=== PATIENT | female | born 1970 | race Caucasian/White ===

== ENCOUNTER 2025-09-28 05:29 | Emergency (ER) | payer MEDICARE, MEDICAID, SELFPAY ==
[2025-09-28] VITALS (16 sets, daily range): BP systolic 89–126; BP diastolic 53–110; PULSE 54–85; RESP 15–27; TEMP 36.6; O2SAT 95–100
--- NOTE | ~2025-09-28 | CT_ITS ---
CT HEAD NON-CONTRAST CT C-SPINE Clinical History: Found down, Non verbal Comparison: None Technique: Unenhanced axial images skull base to vertex. Coronal, sagittal reformats. Axial images thoracic inlet to skull base. Sagittal and coronal reformats. CT images acquired with automatic exposure control for dose reduction DLP: 605 mGy-cm Findings: Head: Sulci, ventricles: Unremarkable. No intracerebral hemorrhage. No evidence acute territorial infarct. No mass effect, midline shift, intra-/extra-axial fluid collection. Bony calvarium intact. Visualized paranasal sinuses: Clear. Mastoid air cells: Clear. C-spine: No acute fracture. Grade 1 anterolisthesis C6 on 7. Vertebral bodies normal height and alignment. Mild degenerative changes. Disc spaces maintained. Prevertebral soft tissues within normal limits. Visualized lung apices: Clear. Visualized thyroid: Unremarkable. No enlarged cervical nodes. IMPRESSION: HEAD: 1. No acute intracranial findings. C-SPINE: 1. No acute fracture. Reviewed, dictated and finalized at location R. GER ELECTRICAL IMPRESSION: HEAD: 1. No acute intracranial findings. C-SPINE: 1. No acute fracture.
--- NOTE | ~2025-09-28 | XR_ITS ---
Examination: XR chest 1V portable Clinical History: Found down, Non verbal Comparison: None Technique: Portable AP Findings: Heart size normal. Lungs clear. No acute bony abnormality. IMPRESSION: 1. No acute cardiopulmonary findings given portable technique. Reviewed, dictated and finalized at location R. IGERATION SYSTEM INSTALLER
--- NOTE | ~2025-09-28 | XR_ITS ---
Examination: XR pelvis 1-2V Clinical History: Found down, Non verbal Comparison: None Technique: AP pelvis Findings/impression: 1. No fracture identified. Reviewed, dictated and finalized at location R. VERY ROOM NURSE
--- NOTE | 2025-09-28 05:40 | ECG_ITS ---
Test Date: 2025-09-28 07:58:06 Measurements Intervals [place] Rate: 69 P: 54 FL: 119 QRS: -12 QRSD: 85 T: 31 QT: 390 QTc: 420 Interpretive Statements SINUS RHYTHM WITH SINUS ARRHYTHMIA WITH SHORT FL INTERVAL LOW QRS VOLTAGE [QRS DEFLECTION < 0.5/1.0 mV IN LIMB/CHEST LEADS] ABNORMAL ECG No previous ECG available for comparison Electronically Signed On 09-28-2025 08:15:33 TAPPER BIT by Mohit Hurst M.D.
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
[2025-09-28 06:39] LABS: Hematocrit 38.6 % (37.0-47.0); Hemoglobin 12.0 g/dL (12.0-15.0); Immature Granulocyte Percent A 0.8 % (0-0.5); Lymphocytes Absolute Auto 0.72 K/mm3 (0.9-3.2); Mean Corpuscular HGB Conc 31.1 g/dl (32-36); Mean Corpuscular Hemoglobin 30.0 pg (26-34); Mean Corpuscular Volume 96.5 fl (80-100); Nucleated Red Blood Cells Absolute Auto 0.000 K/mm3 (0.0-0.012); Nucleated Red Blood Cells Perc 0.0 % (0.0-0.2); Platelet Count Result 265 k/mm3 (150-375); Red Blood Count 4.00 M/mm3 (4.2-5.4); White Blood Count 5.1 K/mm3 (4.5-10.0)
[2025-09-28 06:56] LABS: Alanine Aminotransferase 22 U/L (6-35); Albumin Level 3.8 g/dL (3.5-5.1); Alkaline Phosphatase 139 U/L (38-126); Anion Gap 4 mmol/L (4-12); Aspartate Amino Transferase 43 U/L (14-36); Bilirubin,Total 0.4 mg/dL (0.2-1.3); Blood Urea Nitrogen 17 mg/dL (7-17); Calcium 8.9 mg/dL (8.4-10.2); Carbon Dioxide 30 mmol/L (22-30); Chloride 104 mmol/L (98-107); Creatine Kinase 59 U/L (30-135); Estimated Glomerular Filt Rate > 60; Glucose 109 mg/dL (65-110); Potassium 4.2 mmol/L (3.4-5.0); Sodium 138 mmol/L (137-145); Total Protein 6.5 g/dL (6.3-8.2)
[2025-09-28 07:14] LABS: Influenza A QL RT-PCR Negative (Negative); Influenza B QL RT-PCR Negative (Negative); RSV RNA, RT-PCR Negative (Negative); SARS-CoV-2 RNA PCR Negative (Negative)
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
--- NOTE | 2025-09-28 08:02 | PC.NURSE ---
u bag placed on pt for UA. EDP okayed this method of obtaining a UA
--- NOTE | 2025-09-28 08:36 | PC.NURSE ---
called pt facility, [facility] in [place]. pt RN said she will fax any information she has over
--- NOTE | 2025-09-28 14:09 | PC.NURSE ---
Lab called to check on status of urine walked down during down time. Hematology to check and notify this RN with any issues.
[2025-09-28 14:25] LABS: Add Urine Microscopic? YES; Appearance Urine Clear (Clear); Glucose Urine UA Negative (Negative); Leukocyte Esterase Ur 1+ LEU/UL (Negative); Need Manual Microscopic Reviewed; Nitrate Urine Negative (Negative); Non Pathogenic Casts 0-2; Specific Grav Ur 1.017 (1.001-1.035)
--- NOTE | 2025-09-28 14:42 | PC.NURSE ---
prefabricated houses trimmer called to add pt to list for the house truck. pt is third on the list for transport
--- NOTE | 2025-09-28 14:53 | PC.NURSE ---
Report called to Romie LOZANO at [facility]. Pt will be transferred by out house bus when available.
--- NOTE | 2025-09-28 16:00 | PC.NURSE ---
Pt. assisted with ambulating to commode. Pt. urinated 1x and returned to bed. Pt. given a snack and a soda. Pt. dressed in pajamas she came in. Movie turned over for pt.
--- NOTE | 2025-09-28 17:19 | PC.NURSE ---
Dinner tray ordered to be delivered to bedside.
--- NOTE | 2025-09-28 19:54 | PC.NURSE ---
This RN woke pt. up to ask if she was hungry for dinner. Meal tray at bedside. Pt. declined wanting to eat at this time.
== END 2025-09-28 20:25 ==
PROVIDERS: Emergency Medicine; Emergency Provider Student in an Organized Health Care Education/Training Program
DX: S79.912A Unspecified injury of left hip, initial encounter (principal); R31.29 Other microscopic hematuria; E03.9 Hypothyroidism, unspecified; E55.9 Vitamin D deficiency, unspecified; F02.80 Dementia in other diseases classified elsewhere, unspecified severity, without behavioral disturbance, psychotic disturbance, mood disturbance, and anxiety; F79 Unspecified intellectual disabilities; Q96.9 Turner's syndrome, unspecified; Z87.440 Personal history of urinary (tract) infections; R94.31 Abnormal electrocardiogram [ECG] [EKG]; W19.XXXA Unspecified fall, initial encounter
CPT/HCPCS: 36415; 70450; 71045; 72125; 72170; 80053; 81001; 82550; 85025; 87086; 87637; 93005; 99284